=== PATIENT | female | born 1985 | race Caucasian/White ===

== ENCOUNTER 2017-06-19 08:18 | Day surgery (SDC) | payer MEDICAID ==
[~2017-06-19 08:18] MED LIST: Bupivacaine 0.5% 50 ML MDV ONE; Dextrose 5%-Lactated Ringers 1,000 ML IV SCH; Lidocaine 1% with EPINEPHrine 1:100,000 50 ML MDV ONE; cefOXitin 2 GM in Sodium Chloride 0.9% 50 ML IV ONE
[2017-06-19] MEDS ORDERED: Neostigmine Methylsulfate 1 MG/ML 5 ML Syringe ONE (08:53)
[2017-06-19] MEDS ORDERED: Ondansetron 4 MG/2 ML SDV ONE (08:53)
[2017-06-19] MEDS ORDERED: fentaNYL 250 MCG/5 ML SDV ONE (08:53)
[2017-06-19] MEDS ORDERED: Dexamethasone 4 MG/ML SDV ONE (08:53)
[2017-06-19] MEDS ORDERED: Glycopyrrolate 0.2 MG/ML 5 ML MDV ONE (08:53)
[2017-06-19] MEDS ORDERED: Rocuronium 50 MG/5 ML Vial ONE (08:53)
[2017-06-19] MEDS ORDERED: Propofol 200 MG/20 ML SDV ONE (08:53)
[2017-06-19] MEDS ORDERED: Midazolam 1 MG/ML 2 ML SDV ONE (08:53)
[2017-06-19] MEDS ORDERED: Scopolamine 1.5 MG Transdermal Patch TOP SCH (09:00)
[2017-06-19] MEDS ORDERED: fentaNYL 100 MCG/2 ML SDV ONE (10:02)
[2017-06-19] MEDS ORDERED: Meperidine 300 MG/30 ML PCA Vial IV PRN (10:17)
[2017-06-19] MEDS ORDERED: SUMAtriptan 50 MG Tab PO PRN (10:29)
[2017-06-19] MEDS ORDERED: LORazepam 0.5 MG Tab PO PRN (10:29)
[2017-06-19] MEDS ORDERED: Ondansetron 4 MG/2 ML SDV IVPUSH PRN (10:30)
[2017-06-19] MEDS ORDERED: Dextrose 5%-Lactated Ringers 1,000 ML IV SCH (10:30)
[2017-06-19] MEDS ORDERED: hydrOXYzine HCl 100 MG/2 ML SDV IM ONE (10:56)
[2017-06-19] MEDS ORDERED: diphenhydrAMINE 50 MG/ML SDV IVPUSH ONE (11:50)
[2017-06-19] MEDS: Acetaminophen/oxyCODONE 325-10 MG Tab PO PRN ×3 (14:18→22:36)
[2017-06-19] MEDS: Ketorolac 30 MG/ML SDV IVPUSH SCH ×2 (16:10→22:37)
[2017-06-19] MEDS: VERIFY SCOPOLAMINE PATCH TOP SCH (16:11)
[2017-06-19] MEDS ORDERED: Melatonin 3 MG Tab PO SCH (21:00)
[2017-06-20] MEDS ORDERED: Benzocaine/Cetylpyridinium/Menthol Lozenge MUCMEM PRN (02:17)
[2017-06-20] MEDS: Acetaminophen/oxyCODONE 325-10 MG Tab PO PRN ×2 (02:25→07:29)
[2017-06-20] MEDS: Ketorolac 30 MG/ML SDV IVPUSH SCH (05:26)
--- NOTE | 2017-06-20 06:42 | PCM.DCSUM1 ---
Discharge Summary - Hospital Course Free Text/Narrative:: This 31 year old white female complains of intermittent upper abdominal pain, especially after eating "[place]." Abdominal ultrasound showed cholelithiasis. Her ductal system was unremarkable. Her LFT's were unremarkable. She under went a laparoscopic cholecystectomy after receiving Mefoxin 2 gms IV yesterday. She was kept over night. She is now eating and wants to go home. No fever. Her alk phos and T. bili are unremarkable. She is discharged to home at this time. - Discharge Data Discharge Date: 06/20/17 Discharge Disposition: Home, Self-Care 01 Condition: Good - Discharge Diagnosis/Problem(s) (1) Cholelithiasis and cholecystitis without obstruction SNOMED Code(s): 37518727 ICD Code: K80.10 - CALCULUS OF GALLBLADDER W CHRONIC CHOLECYST W/O OBSTRUCTION Status: Acute Current Visit: Yes - Patient Summary/Data Operative Procedure(s) Performed: Laparoscopic cholecystectomy and Cj-cut liver biopsy. Consults: Consultations 06/19/17 10:30 Respiratory Care Assess and Treatment [CONS] Routine Comment: Physician Instructions: Post-Op Pneumonia Prevention Hospital Course: See above narrative. - Patient Instructions Diet: Usual Diet as Tolerated Activity, Other: Avoid activity that causes discomfort Driving, Other: Do not drive while taking narcotic pain medication. Showering/Bathing: May Shower, No Tub Bathing/Swimming Notify Provider of: Fever, Increased Pain, Swelling and Redness, Drainage, Nausea and/or Vomiting - Discharge Plan Prescriptions/Med Rec: Acetaminophen/oxyCODONE [Percocet 325-10 MG] 1 - 2 tab PO Q4H PRN #30 tablet PRN Reason: Pain Home Medications: Home Meds MV,Ca,Min/Iron Fum/FA/Vit K [Multi For Her Tablet] 1 each PO DAILY 04/14/13 [ History] FLUoxetine HCl [Fluoxetine HCl] 40 mg PO DAILY 05/27/15 [History] Melatonin 10 mg PO BEDTIME 05/27/15 [History] Omeprazole [Prilosec] 20 mg PO DAILY 05/27/15 [History] SUMAtriptan Succinate [Imitrex] 50 mg PO ASDIRECTED PRN 05/27/15 [History] LORazepam 0.5 mg PO BID PRN 06/16/17 [History] Norethindrone-Ethinyl Estrad [Nortrel 1-35 28 Tablet] 1 tab PO DAILY 06/16/17 [ History] Acetaminophen/oxyCODONE [Percocet 325-10 MG] 1 - 2 tab PO Q4H PRN #30 tablet [Rx] Referrals: Delta Mason MD [Physician] - - Discharge Summary/Plan Comment DC Time >30 min.: Yes - Patient Data Vitals - Most Recent: Last Vital Signs Temp 97.4 F 06/20/17 02:19 Pulse 58 L 06/20/17 02:19 Resp 16 06/20/17 02:19 BP 115/61 06/20/17 02:19 Pulse Ox 94 L 06/20/17 02:19 Weight - Most Recent: 205 lb I&O - Last 24 hours: Intake & Output 06/19/17 06/19/17 06/20/17 14:59 22:59 06:59 Intake Total 840 1120 Output Total 0 1000 Balance 840 120 Lab Results - Last 24 hrs: Laboratory Results - last 24 hr 06/19/17 06/20/17 06/20/17 Range/Units 08:38 04:50 04:50 WBC 10.2 (4.5-11.0) K/uL RBC 3.93 (3.30-5.50) M/uL Hgb 11.3 L (12.0-15.0) g/dL Hct 35.7 L (36.0-48.0) % MCV 91 (80-98) fL MCH 29 (27-31) pg MCHC 32 (32-36) % Plt Count 214 (150-400) K/uL Total Bilirubin 0.2 (0.2-1.0) mg/dL Alkaline Phosphatase 59 (46-116) U/L Urine HCG, Qual Negative CAS Results - Last 24 hrs: Microbiology 06/19/17 10:38 Gram Stain - Final Gallbladder Fluid - Bile Wound Culture - Preliminary NO GROWTH AFTER 1 DAY Anaerobic Culture - Preliminary NO GROWTH AFTER 1 DAY Med Orders - Current: Current Medications Benzocaine/Menthol (Cepacol Sore Throat) 1 lozenge MUCMEM 6XDAY PRN PRN Reason: Sore Throat Last Admin: 06/20/17 02:26 Dose: 1 kellee Fluoxetine HCl (Prozac) 40 mg PO DAILY SUSHIL Dextrose/Lactated Ringer's (Dextrose 5%-Lactated Ringers) 1,000 mls @ 125 mls/ hr IV ASDIRECTED [facility] Last Admin: 06/19/17 12:36 Dose: 125 mls/hr Ketorolac Tromethamine (Toradol) 30 mg IVPUSH Q6H [facility] Stop: 06/24/17 16:31 Last Admin: 06/20/17 05:26 Dose: Not Given Lorazepam (Ativan) 0.5 mg PO BID PRN PRN Reason: Anxiety Melatonin (Melatonin) 9 mg PO BEDTIME [facility] Last Admin: 06/19/17 22:36 Dose: 9 mg Multivitamins/Minerals (Thera M Plus) 1 tab PO DAILY [facility] Nortrel 1-35 (Ptom) 1 tab PO DAILY [facility] Verify Scopolamine (Patch) 0 each TOP DAILY [facility] Last Admin: 06/19/17 16:11 Dose: Not Given Ondansetron HCl (Zofran) 4 mg IVPUSH Q4H PRN PRN Reason: Nausea/Vomiting Oxycodone/Acetaminophen (Percocet 325-10 Mg) 1 - 2 tab PO Q4H PRN PRN Reason: Pain Last Admin: 06/20/17 02:25 Dose: 2 tab Pantoprazole Sodium (Protonix) 40 mg PO ACBREAKFAST [facility] Scopolamine (Transderm-Scop) 1.5 mg TOP Q72H [facility] Stop: 06/22/17 07:45 Last Admin: 06/19/17 09:05 Dose: 1.5 mg Sumatriptan Succinate (Imitrex) 50 mg PO ASDIRECTED PRN PRN Reason: migraine Discontinued Medications Bupivacaine HCl (Marcaine 0.5%) Confirm Administered Dose 50 ml .ROUTE .STK-MED ONE Stop: 06/19/17 07:07 Last Admin: 06/19/17 10:10 Dose: 20 ml Dexamethasone (Dexamethasone) Confirm Administered Dose 4 mg .ROUTE .STK-MED ONE Stop: 06/19/17 08:54 Diphenhydramine HCl (Benadryl) 50 mg IVPUSH ONETIME ONE Stop: 06/19/17 11:51 Last Admin: 06/19/17 11:45 Dose: 50 mg Fentanyl (Sublimaze) Confirm Administered Dose 250 mcg .ROUTE .STK-MED ONE Stop: 06/19/17 08:54 Fentanyl (Sublimaze) Confirm Administered Dose 100 mcg .ROUTE .STK-MED ONE Stop: 06/19/17 10:03 Glycopyrrolate (Robinul) Confirm Administered Dose 1 mg .ROUTE .STK-MED ONE Stop: 06/19/17 08:54 Hydroxyzine HCl (Vistaril) 100 mg IM ONETIME ONE Stop: 06/19/17 10:57 Last Admin: 06/19/17 10:59 Dose: 100 mg Cefoxitin Sodium 2 gm/ Sodium (Chloride) 50 mls @ 100 mls/hr IV ONETIME ONE Stop: 06/19/17 08:09 Last Admin: 06/19/17 09:21 Dose: 100 mls/hr Dextrose/Lactated Ringer's (Dextrose 5%-Lactated Ringers) 1,000 mls @ 100 mls/ hr IV ASDIRECTED SUSHIL Last Admin: 06/19/17 09:06 Dose: 100 mls/hr Lidocaine/Epinephrine (Xylocaine 1% With Epinephrine 1:100,000) Confirm Administered Dose 50 ml .ROUTE .STK-MED ONE Stop: 06/19/17 07:07 Last Admin: 06/19/17 10:10 Dose: 20 ml Meperidine HCl (Demerol [employer] 300 Mg In 30 Ml) 10 mg IV ASDIRECTED PRN; Protocol PRN Reason: Pain Last Admin: 06/19/17 10:29 Dose: 10 mg Midazolam HCl (Versed 1 Mg/Ml) Confirm Administered Dose 2 mg .ROUTE .STK-MED ONE Stop: 06/19/17 08:54 Neostigmine Methylsulfate (Neostigmine) Confirm Administered Dose 5 mg .ROUTE .STK-MED ONE Stop: 06/19/17 08:54 Ondansetron HCl (Zofran) Confirm Administered Dose 4 mg .ROUTE .STK-MED ONE Stop: 06/19/17 08:54 Propofol (Diprivan 20 Ml) Confirm Administered Dose 200 mg .ROUTE .STK-MED ONE Stop: 06/19/17 08:54 Rocuronium [place] (Zemuron) Confirm Administered Dose 50 mg .ROUTE .STK-MED ONE Stop: 06/19/17 08:54 *Q Meaningful Use (DIS) - VTE *Q VTE Criteria *Q: - Stroke *Q Stroke Criteria *Q: - AMI *Q AMI Criteria *Q:
[2017-06-20] MEDS ORDERED: Pantoprazole 40 MG Tab.CR PO SCH (07:30)
[2017-06-20 07:33] VITALS: BP 116/56
[2017-06-20] MEDS ORDERED: NORTREL PO SCH (09:00)
[2017-06-20] MEDS ORDERED: LEVONORGESTREL ETHIN ESTRADIOL PO SCH (09:00)
[2017-06-20] MEDS ORDERED: FLUoxetine 20 MG Cap PO SCH (09:00)
[2017-06-20] MEDS ORDERED: Multivitamins with Iron/Calcium/Folic Acid/Minerals Tab PO SCH (09:00)
[2017-06-20] MEDS: VERIFY SCOPOLAMINE PATCH TOP SCH (09:36)
--- NOTE | 2017-06-23 13:47 | OR ---
DATE OF PROCEDURE: 06/19/2017 PREOPERATIVE DIAGNOSES: Chronic cholecystitis with cholelithiasis, fatty liver. POSTOPERATIVE DIAGNOSES: Chronic cholecystitis with cholelithiasis, fatty liver. PROCEDURES: Laparoscopic cholecystectomy and Cj-Cut liver biopsy. SURGEON: Delta Mason MD ANESTHESIA: General endotracheal. INDICATION: This 31-year-old white female complains of upper abdominal pain that radiates into her back, especially after eating fatty foods. She had an abdominal ultrasound, which showed cholelithiasis. There was no ductal dilatation. The liver did appear to be a fatty liver. Liver functions were unremarkable. She is admitted for laparoscopic cholecystectomy. I counseled her for the procedure, including risks and alternatives, and she gave her informed consent to proceed. DESCRIPTION OF PROCEDURE: After adequate general endotracheal anesthesia was obtained, the patient's abdomen was prepped and draped in the usual sterile fashion. Time-out was held. The leg compression stockings were in place and used during the entire procedure. An infraumbilical semicircular incision was made, and under direct vision, a 12-mm port was introduced in the abdomen and through this incision, the camera was introduced into the abdomen, and the abdomen was insufflated to a pressure of 20 mmHg with carbon dioxide. No evidence of intraabdominal injury was seen. Under direct vision, a 12-mm port was placed in the epigastrium and a 5-mm port was placed in the right lower quadrant. A small right upper quadrant incision was made, and through this small incision, a Cj-Cut needle biopsy device was placed. We then obtained a Cj-Cut biopsy of the liver. This required 2 passes. The specimen was sent to pathology. Hemostasis was obtained with electrocautery. The cystic duct and artery were then dissected free. They were clipped separately proximally up on the gallbladder, twice for the artery and 3 times for the duct, and divided between clips. The gallbladder was then dissected free from the gallbladder bed using Bovie electrocautery. The gallbladder was elevated up through the anterior abdominal wall via the epigastric port site. It was noted to contain a few large stones. The epigastric port was reintroduced back in the abdomen. The gallbladder bed was irrigated and suctioned dry. All looked well. The fascial closure device was used to place an 0 Vicryl stitch in the epigastric fascial defect. The infraumbilical port was removed with an interrupted stitch of 0 Vicryl used to close this fascial defect. We evacuated as much CO2 from the abdomen as we could via the 5- mm port site in the right lower quadrant, and then this port was removed. Lidocaine 1% with epinephrine in a 50:50 mix with 0.5% Marcaine was infiltrated about all incisions. 4-0 Vicryl using a subcuticular stitch was placed to approximate the skin of the incisions. Dermabond was applied. The anesthesia was reversed. She was extubated and brought to recovery room in a good condition. Delta Mason MD /[id number]
== END 2017-06-20 09:45 | disposition home or self-care (01) ==
LOC: JP.SDS 08:18 → JP.MS 10:25 → JP.SDS 06-20 09:45
PROVIDERS: ATTEND Surgery
DX: K80.10 Calculus of gallbladder with chronic cholecystitis without obstruction (principal); F41.8 Other specified anxiety disorders; Z88.2 Allergy status to sulfonamides; Z88.8 Allergy status to other drugs, medicaments and biological substances; Z79.899 Other long term (current) drug therapy
CPT/HCPCS: 36415; 81025; 82247; 84075; 85027; 87070; 87075; 87205; 88304; 88307; 88313; A9270-GY; J0694; J1100; J1200; J1885; J2175; J2250; J2405; J2704; J2710; J3010; J3410; J7042; J7050

== ENCOUNTER 2018-10-26 09:29 | Emergency (ER) | payer MEDICAID, OTHER ==
[2018-10-26 09:44] VITALS: BP 145/76; PULSE 74
[2018-10-26] MEDS ORDERED: Ketorolac 60 MG/2 ML SDV IM ONE (10:00)
--- NOTE | 2018-10-26 10:07 | EDM.PDOC ---
ED HPI GENERAL MEDICAL PROBLEM - General Chief Complaint: Head Injury Stated Complaint: HIT BY SCHMID IN THE HEAD Time Seen by Provider: 10/26/18 09:50 Source of Information: Reports: Patient History Limitations: Reports: No Limitations - History of Present Illness INITIAL COMMENTS - FREE TEXT/NARRATIVE: 33-year-old female with a history of migraine headaches, was working when a large cooking schmid fell off the counter and hit her on the top of the head. This happened within the last hour. She feels dizzy, light sensitive but did not lose consciousness. Mild nausea but no vomiting. The top of her head feels like it's "on fire" with very sharp pain. Onset: Sudden Duration: Hour(s): Location: Reports: Head (Within the last hour) Quality: Reports: Sharp, Stabbing Associated Symptoms: Reports: Other (Dizzy, mild nausea) Head Pain Score (Numeric/FACES): 8 - Related Data Allergies Allergy/AdvReac Type Severity Reaction Status Date / Time morphine Allergy Itching Verified 10/26/18 09:46 Sulfa (Sulfonamide AdvReac Mouth Sores Verified 10/26/18 09:46 Antibiotics) Home Meds: Home Meds MV,Ca,Min/Iron Fum/FA/Vit K [Multi For Her Tablet] 1 each PO DAILY 04/14/13 [ History] FLUoxetine HCl [Fluoxetine HCl] 40 mg PO DAILY 05/27/15 [History] SUMAtriptan Succinate [Imitrex] 50 mg PO ASDIRECTED PRN 05/27/15 [History] LORazepam 0.5 mg PO BID PRN 06/16/17 [History] Norethindrone-Ethinyl Estrad [Nortrel 1-35 28 Tablet] 1 tab PO DAILY 06/16/17 [ History] Past Medical History HEENT History: Reports: Impaired Vision Other HEENT History: frequent strep throats Respiratory History: Reports: Pneumothorax Gastrointestinal History: Reports: GERD 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 History: hypermenorrhea Musculoskeletal History: Reports: Arthritis Neurological History: Reports: Headaches, Chronic, Migraines Psychiatric History: Reports: Anxiety Endocrine/Metabolic History: Reports: Obesity/BMI 30+ - Past Surgical History Head Surgeries/Procedures: Reports: None GI Surgical History: Reports: Cholecystectomy Female Surgical History: Reports: Tubal Ligation Social & Family History - Family History Family Medical History: Noncontributory Cardiac: Reports: ID Respiratory: Reports: Asthma, COPD Neurological: Reports: None Psychiatric: Reports: Anxiety Oncologic: Reports: Lung, Lymphoma - Tobacco Use Smoking Status *Q: Light Tobacco Smoker Years of Tobacco use: 5 Packs/Tins Daily: 0.5 - Caffeine Use Caffeine Use: Reports: Soda Caffeine Use Comment: one per day - Alcohol Use Days Per Week of Alcohol Use: 3 Number of Drinks Per Day: 3 Total Drinks Per Week: 9 - Recreational Drug Use Recreational Drug Use: No ED ROS GENERAL - Review of Systems Review Of Systems: See Below HEENT: Reports: Other (Initially blurred vision, now photophobic) Respiratory: Reports: No Symptoms GI/Abdominal: Reports: Nausea Musculoskeletal: Denies: Neck Pain Neurological: Reports: Headache ED EXAM, HEAD INJURY - Physical Exam Exam: See Below Exam Limited By: No Limitations General Appearance: Alert, Mild Distress (Fairly uncomfortable) Head: Other (Very tiny amount of swelling on the frontal area of the scalp which is tender to palpation, no bruising, redness, abrasion or hematoma) Neck: Non-Tender Respiratory: No Respiratory Distress Neurologic: No Motor/Sensory Deficits Skin: Normal Color (No erythema or bruising of the scalp) - [place] Coma Score Best Eye Response ([place]): (4) Open Spontaneously Best Verbal Response ([place]): (5) Oriented Best Motor Response ([place]itha): (6) Obeys Commands Course - Vital Signs Last Recorded V/S: Last Vital Signs Temp 96.4 F 10/26/18 09:45 Pulse 74 10/26/18 09:45 Resp 15 10/26/18 09:45 BP 145/76 H 10/26/18 09:45 Pulse Ox 97 10/26/18 09:45 - Orders/Labs/Meds Meds: Medications Discontinued Medications Generic Name Dose Route Start Last Admin Trade Name Freq PRN Reason Stop Dose Admin Ketorolac Tromethamine 60 mg 10/26/18 10:00 10/26/18 10:10 Toradol IM 10/26/18 10:01 60 mg ONETIME ONE Administration - Re-Assessments/Exams Free Text/Narrative Re-Assessment/Exam: 10/26/18 10:06 Patient was given 60 mg of IM Toradol. 10/26/18 10:50 30 minutes after the Toradol injection, the patient was feeling much better. She was able to tolerate light and only had a small area of tenderness on the scalp. Exam was repeated, pupils are equal and reactive to light and there were no peripheral deficits. She was willing to try to go back to work. Departure - Departure Time of Disposition: 11:04 Disposition: Home, Self-Care 01 Clinical Impression: Contusion of scalp Qualifiers: Encounter type: initial encounter Qualified Code(s): S00.03XA - Contusion of scalp, initial encounter - Discharge Information Instructions: Contusion, [id number] Referrals: Varsha Alanis PA [Primary Care Provider] - Forms: ED Department Discharge Care Plan Goals: A regular dose of ibuprofen over the next 24-48 hours should be helpful. Increase activity as tolerated and return anytime if worsening such as nausea and vomiting which is persistent or strange neurologic weakness or double vision.
== END 2018-10-26 11:05 | disposition home or self-care (01) ==
LOC: JP.ED 09:29
DX: S00.03XA Contusion of scalp, initial encounter (principal); F17.210 Nicotine dependence, cigarettes, uncomplicated; K21.9 Gastro-esophageal reflux disease without esophagitis; F41.9 Anxiety disorder, unspecified; Z79.899 Other long term (current) drug therapy; Z88.5 Allergy status to narcotic agent; Z88.2 Allergy status to sulfonamides; W20.8XXA Other cause of strike by thrown, projected or falling object, initial encounter
CPT/HCPCS: 96372; 99283; J1885

== ENCOUNTER 2020-03-06 08:44 | Emergency (ER) | payer OTHER ==
--- NOTE | 2020-03-06 09:54 | EDM.PDOC ---
ED HPI GENERAL MEDICAL PROBLEM - General Chief Complaint: Headache Stated Complaint: R ARM NUMB Time Seen by Provider: 03/06/20 09:40 Source of Information: Reports: Patient, Family, RN History Limitations: Reports: No Limitations - History of Present Illness INITIAL COMMENTS - FREE TEXT/NARRATIVE: 34-year-old female with a known history of migraines awakened this morning to meng ve numbness in her right arm but no neurologic deficits or inability to do anything other than the feeling of numbness. She has never had this before. She has an accompanying typical headache for her which she often gets with her migraine history. She apparently had migrainous headache yesterday and last night when she went to sleep. She has not taken anything for it. She does not have any neurologic deficit history and is otherwise in good health. One unusual thing about her history with a spontaneous left pneumothorax for which she had a chest tube some years ago in this hospital. No explanation for the cause. No trauma. Has not traveled anywhere. All systems work normally otherwise. She did note a few days ago that she had a popping sensation in her right hip posteriorly and it popped again but she did not have any loss of function or ability to move around Onset: Today, Unknown/Unsure Duration: Hour(s): Location: Reports: Upper Extremity, Right Quality: Reports: Other Severity: Mild Improves with: Reports: None Worsens with: Reports: None Associated Symptoms: Reports: No Other Symptoms Right Arm Pain Score (Numeric/FACES): 2 - Related Data Allergies Allergy/AdvReac Type Severity Reaction Status Date / Time morphine Allergy Itching Verified 03/06/20 09:13 Sulfa (Sulfonamide AdvReac Mouth Sores Verified 03/06/20 09:13 Antibiotics) Home Meds: Home Meds Mv,Calcium,Min/Iron/Folic/Vitk [Multi For Her Tablet] 1 each PO DAILY 04/14/13 [History] FLUoxetine HCl [Fluoxetine HCl] 40 mg PO DAILY 05/27/15 [History] LORazepam 0.5 mg PO BID PRN 06/16/17 [History] Norethindrone-Ethin. 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: hypermenorrhea Musculoskeletal History: Reports: Arthritis Neurological History: Reports: Headaches, Chronic, Migraines, Other (See Below) Other Neuro History: Salguero Palsy Psychiatric History: Reports: Anxiety Endocrine/Metabolic History: Reports: Obesity/BMI 30+ - Past Surgical History Head Surgeries/Procedures: Reports: None HEENT Surgical History: Reports: None Respiratory Surgical History: Reports: None GI Surgical History: Reports: Cholecystectomy Female Surgical History: Reports: Tubal Ligation Endocrine Surgical History: Reports: None Neurological Surgical History: Reports: None Musculoskeletal Surgical History: Reports: None Dermatological Surgical History: Reports: None Social & Family History - Family History Family Medical History: No Pertinent Family History Cardiac: Reports: [place] Respiratory: Reports: Asthma, COPD Neurological: Reports: None Psychiatric: Reports: Anxiety Oncologic: Reports: Lung, Lymphoma - Tobacco Use Tobacco Use Status *Q: Current Every Day Tobacco User Years of Tobacco use: 18 Packs/Tins Daily: 1 - Caffeine Use Caffeine Use: Reports: Coffee, Soda Caffeine Use Comment: one per day - Recreational Drug Use Recreational Drug Use: No ED ROS GENERAL - Review of Systems Review Of Systems: See Below Constitutional: Reports: No Symptoms HEENT: Reports: No Symptoms, Other (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 but this is not anything like that) Respiratory: Reports: No Symptoms Cardiovascular: Reports: No Symptoms Endocrine: Reports: No Symptoms GI/Abdominal: Reports: No Symptoms : Reports: No Symptoms Musculoskeletal: Reports: No Symptoms Skin: Reports: No Symptoms Neurological: Reports: Other (Numbness noted in her entire right arm and hand persistent) Psychiatric: Reports: No Symptoms, Anxiety Hematologic/Lymphatic: Reports: No Symptoms Immunologic: Reports: No Symptoms - Physical Exam Exam: See Below Text/Narrative:: She is a healthy-appearing 34-year-old female sitting quietly on the gurney appearing somewhat anxious with no obvious deficits Her head exam is entirely normal including pupils equal round reactive light extraocular motions are normal and peripheral lundberg of vision appear to be normal as well. No facial droop tongue is midline Neck is supple normal range of motion. Chest clear regular rate and rhythm. Abdomen soft active bowel sounds. Extremities are normal in appearance and range of motion and function. Skin exam is negative. Neurologic she can get off the gurney walk to the door open and close walked back on her toes and stand and do [id number] with no deficits. Her strength is equal bilaterally. Reflexes are symmetric. Sensation and function in extremities are all normal although she complains of numbness in her right arm there is no obvious neurologic findings suggesting an neurologic deficit Exam Limited By: No Limitations General Appearance: Alert, WD/WN, No Apparent Distress, Anxious Eye Exam: Bilateral Eye: EOMI, PERRL Ears: Normal External Exam, Normal Canal, Hearing Grossly Normal, Normal TMs Nose: Normal Inspection Throat/Mouth: Normal Inspection Head Exam: Atraumatic, Normocephalic Neck: Normal Inspection Respiratory/Chest: No Respiratory Distress Cardiovascular: Normal Peripheral Pulses GI/Abdominal: Normal Bowel Sounds, Soft, Non-Tender, No Organomegaly, No Disten tion Neuro Exam (Abbreviated): Alert, Oriented, Normal Cognition, Normal Gait, Normal Reflexes, No Motor/Sensory Deficits Back Exam: Normal Inspection Extremities: Normal Inspection Psychiatric: Normal Affect, Normal Mood Skin Exam: Warm, Dry, Intact, Normal Color Course - Vital Signs Text/Narrative:: I discussed the differential with her and a migraine variant seems most likely. We will try to avoid CAT scan if we can her other tests as she has such a normal neurologic exam. I spoke with the pharmacist about using some droperidol which historically was a really fine drug for migraines and see if this makes the problem go away in her arm and her headache before proceeding with other testing. By 11 AM she has complete resolution of her headache and her arm numbness has gone away secondary to 5 mg of droperidol IM Last Recorded V/S: Last Vital Signs Temp 36.7 C 03/06/20 09:17 Pulse 86 03/06/20 09:17 Resp 16 03/06/20 09:17 BP 139/79 03/06/20 09:17 Pulse Ox 97 03/06/20 09:17 - Orders/Labs/Meds Orders: Active Orders 24 hr Category Date Time Status EKG Documentation Completion [RC] ASDIRECTED Care 03/06/20 10:04 Active EKG 12 Lead [EK] Stat Ther 03/06/20 10:04 Ordered Meds: Medications Discontinued Medications Generic Name Dose Route Start Last Admin Trade Name Freq PRN Reason Stop Dose Admin Droperidol 5 mg 03/06/20 09:59 03/06/20 10:11 Inapsine IM 03/06/20 10:00 5 mg ONETIME ONE Administration Departure - Departure Time of Disposition: 11:00 Disposition: Home, Self-Care 01 Condition: Good Clinical Impression: Migraine - Discharge Information Referrals: Varsha Alanis PA [Primary Care Provider] - Forms: ED Department Discharge Sepsis Event Note (ED) - Evaluation Sepsis Screening Result: No Definite Risk - Focused Exam Vital Signs: Vital Signs Temp Pulse Resp BP Pulse Ox 03/06/20 09:17 36.7 C 86 16 139/79 97 03/06/20 08:58 36.7 C 86 16 139/79 97 - My Orders Last 24 Hours: My Active Orders 03/06/20 10:04 EKG Documentation Completion [RC] ASDIRECTED EKG 12 Lead [EK] Stat - Assessment/Plan Last 24 Hours: My Active Orders 03/06/20 10:04 EKG Documentation Completion [RC] ASDIRECTED EKG 12 Lead [EK] Stat
[2020-03-06 11:01] VITALS: BP 107/70; PULSE 72
== END 2020-03-06 11:14 | disposition home or self-care (01) ==
LOC: JP.ED 08:44
DX: G43.909 Migraine, unspecified, not intractable, without status migrainosus (principal); F41.9 Anxiety disorder, unspecified; F17.210 Nicotine dependence, cigarettes, uncomplicated; E66.9 Obesity, unspecified; Z68.29 Body mass index [BMI] 29.0-29.9, adult; Z88.5 Allergy status to narcotic agent; Z88.2 Allergy status to sulfonamides; Z79.899 Other long term (current) drug therapy
CPT/HCPCS: 93005; 96372; 99284; J1790

== ENCOUNTER → 2021-07-29 | Day surgery (SDC) | payer OTHER ==
[~2021-07-29] MED LIST changes: -Bupivacaine 0.5% 50 ML MDV ONE; +Dexamethasone 4 MG/ML SDV ONE; -Dextrose 5%-Lactated Ringers 1,000 ML IV SCH; -Lidocaine 1% with EPINEPHrine 1:100,000 50 ML MDV ONE; +Midazolam 1 MG/ML 2 ML SDV ONE; +Ondansetron 4 MG/2 ML SDV ONE; +Propofol 200 MG/20 ML SDV ONE; +Sodium Chloride 0.9% 1,000 ML IV SCH; -cefOXitin 2 GM in Sodium Chloride 0.9% 50 ML IV ONE; +fentaNYL 100 MCG/2 ML SDV ONE
[2021-07-29 11:48] VITALS: BP 115/66; PULSE 63
== END ==
LOC: JP.SDS 08:49
PROVIDERS: ATTEND Family Medicine
DX: K50.00 Crohn's disease of small intestine without complications (principal); K62.89 Other specified diseases of anus and rectum; K52.89 Other specified noninfective gastroenteritis and colitis; F32.9 Major depressive disorder, single episode, unspecified; Z88.2 Allergy status to sulfonamides; Z88.6 Allergy status to analgesic agent
CPT/HCPCS: 81025; 88305; J1100; J2250; J2405; J2704; J3010; J7030

== ENCOUNTER 2021-10-20 18:30 | Emergency (ER) | payer OTHER ==
[2021-10-20 18:50] VITALS: BP 128/78; PULSE 82
[2021-10-20] MEDS ORDERED: Sodium Chloride 0.9% 1,000 ML IV SCH (19:45)
== END 2021-10-20 21:37 | disposition home or self-care (01) ==
LOC: JP.ED 18:30
DX: U07.1 COVID-19 (principal); K92.9 Disease of digestive system, unspecified; E86.0 Dehydration; E66.9 Obesity, unspecified; Z68.25 Body mass index [BMI] 25.0-25.9, adult; Z88.6 Allergy status to analgesic agent; Z88.2 Allergy status to sulfonamides; Z79.899 Other long term (current) drug therapy; Z86.16 Personal history of COVID-19; Z90.49 Acquired absence of other specified parts of digestive tract
CPT/HCPCS: 36415; 80048; 81001; 85025; 87635; 96360; 99284; J7030; 99283; U0002

== ENCOUNTER 2022-04-21 23:44 | Emergency (ER) | payer OTHER ==
[2022-04-22 00:03] VITALS: BP 140/68; PULSE 78
[2022-04-22] MEDS ORDERED: Ketorolac 30 MG/ML SDV IM ONE (00:25)
[2022-04-22 00:56] LABS: ESTIMATED GFR 114 mL/min (>60)
== END 2022-04-22 01:33 | disposition home or self-care (01) ==
LOC: JP.ED 23:44
DX: G43.909 Migraine, unspecified, not intractable, without status migrainosus (principal); L50.9 Urticaria, unspecified; E66.9 Obesity, unspecified; Z68.27 Body mass index [BMI] 27.0-27.9, adult; Z88.5 Allergy status to narcotic agent; Z88.2 Allergy status to sulfonamides; Z79.899 Other long term (current) drug therapy
CPT/HCPCS: 36415; 80053; 85025; 96372; 99283; 99284; J1885